=== PATIENT | male | born 1985 | race Hispanic/Latino ===

== ENCOUNTER → 2022-11-05 | Outpatient (CLI) | payer BC ==
[~2022-11-05] MED LIST: IOHEXOL 350 MG/ML 100ML INFUS..BTL IV ONE
== END | disposition home or self-care (01) ==
LOC: RAH 10:40
PROVIDERS: ATTEND Internal Medicine
DX: I25.10 Atherosclerotic heart disease of native coronary artery without angina pectoris (principal); R07.9 Chest pain, unspecified; R94.31 Abnormal electrocardiogram [ECG] [EKG]
CPT/HCPCS: 75574; Q9967

== ENCOUNTER 2023-01-11 05:54 | Day surgery (SDC) | payer BC ==
[2023-01-07 11:09] LABS: BASOPHILS # (AUTO) 0.02 K/uL (0.00-0.20); BASOPHILS % (AUTO) 0.3 % (0.0-5.0); EOSINOPHILS # (AUTO) 0.16 K/uL (0.00-0.70); EOSINOPHILS % (AUTO) 2.7 % (0.0-8.0); HEMATOCRIT 43.3 % (42-54); IMMATURE GRANULOCYTE ABSOLUTE 0.02 K/uL (0-1); LYMPHOCYTES # (AUTO) 2.1 K/uL (1.0-4.8); MEAN CORPUSCULAR HEMOGLOBIN 31.1 pg (27.0-33.0); MEAN CORPUSCULAR HGB CONC 33.9 g/dL (32.0-36.0); MEAN CORPUSCULAR VOLUME 91.7 fL (79-99); MONOCYTES # (AUTO) 0.4 K/uL (0.1-1.0); MONOCYTES % (AUTO) 6.4 % (3.0-13.0); NEUTROPHILS # (AUTO) 3.3 K/uL (1.8-7.7); NEUTROPHILS % (AUTO) 55.3 % (40.0-77.0); PLATELET COUNT (AUTO) 204 K/uL (130-400); RED BLOOD CELL COUNT(AUTO) 4.72 MIL/uL (4.50-6.20); RED CELL DISTRIBUTION WIDTH 11.9 % (11.0-15.5); WHITE BLOOD COUNT (AUTO) 5.9 K/uL (4.8-10.8)
[2023-01-07 11:13] VITALS: BP 151/88; PULSE 58; RESP 16
[2023-01-07 11:26] LABS: CREATININE 0.9 mg/dL (0.5-1.5)
[2023-01-07 11:57] LABS: INR 0.97 (0.85-1.15); PROTHROMBIN TIME 11.3 SEC (9.6-11.6)
[2023-01-07 11:59] LABS: B-TYPE NATRIURETIC PEPTIDE 10 pg/mL (0-100); PARTIAL THROMBOPLASTIN TIME 27.7 SEC (26.3-35.5)
[~2023-01-11] VITALS: Ht 177.8 cm; Wt 109.3 kg
[2023-01-11] VITALS (8 sets, daily range): BP systolic 116–153; BP diastolic 72–94; PULSE 53–75; RESP 14–18
[~2023-01-11 05:54] MED LIST changes: +ASPI-1443 PO; +ATOR20TA65 PO; +CETI10TA57 PO; -IOHEXOL 350 MG/ML 100ML INFUS..BTL IV ONE; +NITR0.4T50 SL
[2023-01-11] MEDS ORDERED: 0.9%NACL 1000ML 1,000 ML IV ONE (06:37)
[2023-01-11] MEDS ORDERED: LIDOCAINE HCL-MPF 2% 5ML VIAL ONE (07:06)
[2023-01-11] MEDS ORDERED: FENTANYL CITRATE PF 50 MCG/1 ML 2ML VIAL ONE ×2 (07:06→08:25)
[2023-01-11] MEDS ORDERED: HEPARIN 10,000 UNIT/10ML (1,000 UNIT/ML) VIAL ONE (07:07)
[2023-01-11] MEDS ORDERED: VERAPAMIL HCL 2.5 MG/ML VIAL ONE (07:07)
[2023-01-11] MEDS ORDERED: IOHEXOL 350 MG/ML 100ML INFUS..BTL IV ONE (07:07)
[2023-01-11] MEDS ORDERED: MIDAZOLAM HCL 1 MG/ML 2ML VIAL ONE (07:07)
[2023-01-11] MEDS ORDERED: NITROGLYCERIN 50MG VIAL ONE (07:07)
[2023-01-11] MEDS ORDERED: LIDOCAINE HCL 400MG/20ML VIAL ONE (08:10)
[2023-01-11] MEDS ORDERED: 0.9%NACL 1000ML 1,000 ML IV SCH (09:00)
[2023-01-11] MEDS ORDERED: ACETAMINOPHEN WITH CODEINE 1 TAB TAB PO PRN (09:00)
== END 2023-01-11 11:07 | disposition home or self-care (01) ==
LOC: DAH 05:54
PROVIDERS: ATTEND Internal Medicine
DX: I25.119 Atherosclerotic heart disease of native coronary artery with unspecified angina pectoris (principal); E78.5 Hyperlipidemia, unspecified; Z79.899 Other long term (current) drug therapy; Z79.01 Long term (current) use of anticoagulants; Z82.49 Family history of ischemic heart disease and other diseases of the circulatory system; Z83.3 Family history of diabetes mellitus; Z79.82 Long term (current) use of aspirin
CPT/HCPCS: 80048; 83880; 85025; 85610; 85730; 36415; 71045; 93005; 93458; 96360; 96361; C1769; C1887 ×2; C1894; Q9965 ×2; J3010 ×2; J7030; J1644 ×2; J2250; J3490 ×3; Q9967; A4215; A4222; A4221; A4663; A4216; A4606; A4223 ×3; 99156; 99157